=== PATIENT | male | born 1975 | race Caucasian/White ===

== ENCOUNTER 2017-11-24 12:49 | Emergency (ER) | payer OTHER ==
[~2017-11-24] VITALS: Ht 162.6 cm; Wt 70.3 kg
[2017-11-24] MEDS ORDERED: Bactrim Ds Tab1 EACH PO (13:17)
== END 2017-11-24 13:26 | disposition home or self-care (01) ==
LOC: ER 12:49
DX: L03.116 Cellulitis of left lower limb (principal); F17.200 Nicotine dependence, unspecified, uncomplicated
CPT/HCPCS: 99282